=== PATIENT | male | born 1990 | race Caucasian/White ===

== ENCOUNTER 2021-05-13 11:50 | Emergency (ER) | payer OTHER ==
[2021-05-13] MEDS ORDERED: Ondansetron PF 4 MG/2 ML Vial ONE ×2 (12:09→13:11)
[2021-05-13] MEDS ORDERED: Thiamine HCl 200 MG/2 ML VIAL ONE (12:09)
[2021-05-13 12:23] LABS: #Basophils 0.1 thou/uL (0.0-0.2); #Lymphocytes 1.6 thou/uL (1.20-3.40); #Monocytes 0.7 thou/uL (0.11-0.59); #Neutrophils 5.7 thou/uL (1.40-6.50); %Basophils 1.1 % (0.0-1.0); %Eosinophils 0.4 % (0.0-10.0); %Lymphocytes 19.4 % (21.0-51.0); %Monocytes 8.8 % (0.0-10.0); %Neutrophils 70.3 % (42.0-75.0); Hemoglobin 16.9 g/dL (14.0-18.0); Mean Corpuscular HGB CONC 34.2 g/dL (32.0-36.0); Mean Corpuscular Hemoglobin 31.8 pg (27.0-31.0); Mean Platelet Volume 6.5 fL (7.4-10.4); Platelet Count 367 thou/uL (130-400); RBC Distribution Width 11.5 % (11.5-14.5); White Blood Cell (WBC) Count 8.2 thou/uL (4.8-10.8)
[2021-05-13] MEDS ORDERED: Famotidine In NaCl 20 mg/50 ml Premix Bag ONE (12:25)
[2021-05-13 12:39] LABS: ALT (SGPT) 54 U/L (8-55); AST (SGOT) 50 U/L (5-34); Albumin 4.7 g/dL (3.5-5.0); Alcohol 42 mg/dL (Less than 10); Alkaline Phosphatase 114 U/L (40-110); Anion Gap 20 mmol/L (10-20); BUN (Urea Nitrogen) 9 mg/dL (8.9-20.6); Bilirubin, Total 0.6 mg/dL (0.2-1.2); Calc. Creatinine Clearance 0 mL/min (70-130); Calcium 9.8 mg/dL (7.8-10.44); Carbon Dioxide 24 mmol/L (22-29); Chloride 103 mmol/L (98-107); Globulin 3.6 g/dL (2.4-3.5); Glucose 114 mg/dL (70-105); Lipase 14 U/L (8-78); Potassium 3.4 mmol/L (3.5-5.1); Protein, Total 8.3 g/dL (6.0-8.3); Sodium 144 mmol/L (136-145)
[2021-05-13] MEDS ORDERED: Lorazepam 2 MG/ML VIAL ONE (13:11)
== END 2021-05-13 14:25 | disposition home or self-care (01) ==
LOC: BURERS 11:50
DX: F10.239 Alcohol dependence with withdrawal, unspecified (principal)
CPT/HCPCS: 80053; 80307; 83690; 83735; 85025; 96374; 96375; 96376; J2060; J2405; J3411